=== PATIENT | male | born 1985 | race Caucasian/White ===

== ENCOUNTER 2017-11-18 01:09 | Emergency (ER) | payer BC ==
[~2017-11-18] VITALS: Ht 187.9 cm; Wt 154.2 kg
[~2017-11-18 01:09] MED LIST: AMOXICILLIN500 MG PO; IBU800 M1 PO; NKHM; TOBRADEX 0.1%-0.5 ML OPH; VICODIN 5/500 505 MG PO
[2017-11-18 01:58] LABS: HEMATOCRIT 47.6 % (42.0-52.0); HEMOGLOBIN 15.3 g/dl (14.0-18.0); MEAN CELL VOLUME 84.8 fl (80.0-94.0); MEAN CORPUSCULAR HGB 27.3 pg (27.0-31.0); MEAN CORPUSCULAR HGB CONC 32.1 g/dl (33.0-37.0); MEAN PLATELET VOLUME 9.4 fl (9.6-12.3); PLATELET COUNT AUTOMATED 256 10*3/uL (130-400); RED BLOOD COUNT 5.61 10*6/uL (4.50-5.90); RED CELL DISTRI WIDTH 14.2 % (0-14.5); WHITE BLOOD COUNT 15.4 10*3/uL (4.8-10.8)
[2017-11-18 02:10] LABS: BILIRUBIN 1+ (NEGATIVE); BLOOD NEGATIVE (NEGATIVE); CLARITY SL CLOUDY (CLEAR); COLOR YELLOW (YELLOW); GLUCOSE NEGATIVE (NEGATIVE); KETONE NEGATIVE (NEGATIVE); LEUKO ESTERASE NEGATIVE (NEGATIVE); NITRITE NEGATIVE (NEGATIVE); PH 5.5 (5.0-9.0); SPECIFIC GRAVITY 1.025 (1.005-1.030); UROBILINOGEN 0.2 E.U./dl (0.2-1.0)
[2017-11-18 02:14] LABS: ALBUMIN 3.4 gm/dl (3.1-4.5); ALKALINE PHOSPHATASE 57 U/L (45-117); BUN 18 mg/dl (7-24); CHLORIDE 104 mmol/L (98-107); CREATININE 1.03 mg/dL (0.70-1.30); LIPASE 159 U/L (73-393); POTASSIUM 3.7 mmol/L (3.5-5.1); SGOT/AST 15 IU/L (3-35); SGPT/ALT 29 U/L (12-78); SODIUM 144 mmol/L (136-145); TOTAL PROTEIN 7.6 gm/dL (6.4-8.2)
[2017-11-18 02:16] LABS: PLATELET SUFFICIENCY NORMAL (NORMAL); TOTAL CELLS COUNTED 100 #CELLS
[2017-11-18 02:17] LABS: MUCOUS TRACE
[2017-11-18 02:18] LABS: CALCIUM OXALATE CRYSTALS 1+; RBC 0-2 rbc/hpf (0-2); WBC 0-2 wbc/hpf (0-5)
[2017-11-18] MEDS ORDERED: ZOFRAN ODT4 MG SL (02:46)
[2017-11-18] MEDS ORDERED: LOMOTIL 2.5-0.1 EACH PO (02:48)
== END 2017-11-18 03:45 | disposition home or self-care (01) ==
LOC: ED 01:09
PROVIDERS: Emergency Medicine Emergency Medical Services
DX: K52.9 Noninfective gastroenteritis and colitis, unspecified (principal); F17.200 Nicotine dependence, unspecified, uncomplicated; Z88.2 Allergy status to sulfonamides; Z91.040 Latex allergy status

== ENCOUNTER 2018-05-14 00:28 | Emergency (ER) | payer BC ==
[~2018-05-14] VITALS: Ht 187.9 cm; Wt 145.1 kg
[~2018-05-14 00:28] MED LIST changes: +LOMOTIL 2.5-0.1 EACH PO; +ZOFRAN ODT4 MG SL
[2018-05-14 01:05] LABS: BASO % 0.3 % (0.0-1.0); EOS # 0.4 10*3/uL (0.0-0.4); EOS % 2.9 % (1.0-4.0); HEMATOCRIT 48.8 % (42.0-52.0); HEMOGLOBIN 15.4 g/dl (14.0-18.0); LYMPH # 1.3 10*3/uL (1.3-4.4); LYMPH % 10.4 % (27.0-41.0); MEAN CELL VOLUME 84.3 fl (80.0-94.0); MEAN CORPUSCULAR HGB 26.6 pg (27.0-31.0); MEAN CORPUSCULAR HGB CONC 31.6 g/dl (33.0-37.0); MEAN PLATELET VOLUME 9.8 fl (9.6-12.3); MONO # 0.9 10*3/uL (0.1-1.0); MONO % 7.2 % (3.0-9.0); NEUT # 10.1 10*3/uL (2.3-7.9); NEUT % 78.8 % (47.0-73.0); PLATELET COUNT AUTOMATED 311 10*3/uL (130-400); RED BLOOD COUNT 5.79 10*6/uL (4.50-5.90); RED CELL DISTRI WIDTH 13.3 % (0-14.5); WHITE BLOOD COUNT 12.9 10*3/uL (4.8-10.8)
[2018-05-14 01:30] LABS: ALBUMIN 3.7 gm/dl (3.1-4.5); ALKALINE PHOSPHATASE 51 U/L (45-117); BUN 20 mg/dl (7-24); CHLORIDE 110 mmol/L (98-107); CREATININE 0.95 mg/dL (0.70-1.30); LIPASE 137 U/L (73-393); POTASSIUM 3.8 mmol/L (3.5-5.1); SGOT/AST 19 IU/L (3-35); SGPT/ALT 29 U/L (12-78); SODIUM 143 mmol/L (136-145)
[2018-05-14 01:42] LABS: DIGOXIN 0.08 ng/ml (0.8-2.0)
[2018-05-14 02:12] LABS: BILIRUBIN 1+ (NEGATIVE); BLOOD NEGATIVE (NEGATIVE); CLARITY CLEAR (CLEAR); COLOR YELLOW (YELLOW); GLUCOSE NEGATIVE (NEGATIVE); KETONE NEGATIVE (NEGATIVE); LEUKO ESTERASE NEGATIVE (NEGATIVE); NITRITE NEGATIVE (NEGATIVE); SPECIFIC GRAVITY >= 1.030 (1.005-1.030)
[2018-05-14 02:28] LABS: BACTERIA TRACE
[2018-05-14] MEDS ORDERED: ZOFRAN ODT4 MG SL (03:06)
[2018-05-14] MEDS ORDERED: IMODIUM A-D2 M2 PO (03:06)
[2018-05-14] MEDS ORDERED: KENALOG 0.1%80 GM T (03:10)
== END 2018-05-14 03:38 | disposition home or self-care (01) ==
LOC: ED 00:28
PROVIDERS: Emergency Medicine Emergency Medical Services
DX: E86.0 Dehydration (principal); K52.9 Noninfective gastroenteritis and colitis, unspecified; F17.200 Nicotine dependence, unspecified, uncomplicated; Z98.890 Other specified postprocedural states; Z88.2 Allergy status to sulfonamides; Z91.040 Latex allergy status

== ENCOUNTER 2018-10-03 15:14 | Emergency (ER) | payer BC ==
[~2018-10-03] VITALS: Ht 187.9 cm; Wt 149.7 kg
[~2018-10-03 15:14] MED LIST changes: +IMODIUM A-D2 M2 PO; +KENALOG 0.1%80 GM T
[2018-10-03] MEDS ORDERED: NAPROSYN500 MG PO (15:16)
[2018-10-03] MEDS ORDERED: ZOFRAN4 MG PO (15:16)
[2018-10-03] MEDS ORDERED: VIBRAMYCIN100 MG PO (15:16)
== END 2018-10-03 15:35 | disposition home or self-care (01) ==
LOC: ED 15:14
DX: L03.221 Cellulitis of neck (principal); R03.0 Elevated blood-pressure reading, without diagnosis of hypertension; Z91.040 Latex allergy status; Z88.2 Allergy status to sulfonamides; Z79.899 Other long term (current) drug therapy

== ENCOUNTER 2018-12-10 12:51 | Emergency (ER) | payer BC ==
[~2018-12-10] VITALS: Ht 187.9 cm; Wt 145.1 kg
[~2018-12-10 12:51] MED LIST changes: +NAPROSYN500 MG PO; +VIBRAMYCIN100 MG PO; +ZOFRAN4 MG PO
[2018-12-10 13:37] LABS: BASO # 0.1 10*3/uL (0.0-0.1); BASO % 0.6 % (0.0-1.0); EOS # 0.4 10*3/uL (0.0-0.4); EOS % 3.1 % (1.0-4.0); HEMATOCRIT 48.7 % (42.0-52.0); HEMOGLOBIN 15.6 g/dl (14.0-18.0); LYMPH # 1.8 10*3/uL (1.3-4.4); MEAN CELL VOLUME 85.3 fl (80.0-94.0); MEAN CORPUSCULAR HGB 27.3 pg (27.0-31.0); MEAN PLATELET VOLUME 9.9 fl (9.6-12.3); MONO # 1.2 10*3/uL (0.1-1.0); MONO % 9.6 % (3.0-9.0); NEUT # 9.2 10*3/uL (2.3-7.9); NEUT % 72.2 % (47.0-73.0); PLATELET COUNT AUTOMATED 264 10*3/uL (130-400); RED BLOOD COUNT 5.71 10*6/uL (4.50-5.90); RED CELL DISTRI WIDTH 13.6 % (0-14.5); WHITE BLOOD COUNT 12.8 10*3/uL (4.8-10.8)
[2018-12-10 13:49] LABS: ALBUMIN 3.8 gm/dl (3.1-4.5); ALKALINE PHOSPHATASE 56 U/L (45-117); BUN 13 mg/dl (7-24); CHLORIDE 106 mmol/L (98-107); CREATININE 0.83 mg/dL (0.70-1.30); POTASSIUM 3.9 mmol/L (3.5-5.1); SGOT/AST 17 IU/L (3-35); SGPT/ALT 23 U/L (12-78); SODIUM 141 mmol/L (136-145); TOTAL PROTEIN 7.8 gm/dL (6.4-8.2)
[2018-12-10] MEDS ORDERED: CLEOCIN HCL150 MG PO (16:41)
== END 2018-12-10 17:00 | disposition home or self-care (01) ==
LOC: ED 12:51
PROVIDERS: Nurse Practitioner Family
DX: L02.11 Cutaneous abscess of neck (principal); L40.0 Psoriasis vulgaris; L81.9 Disorder of pigmentation, unspecified; R79.1 Abnormal coagulation profile; Z88.2 Allergy status to sulfonamides; Z91.040 Latex allergy status

== ENCOUNTER 2019-01-30 21:11 | Emergency (ER) | payer BC ==
[~2019-01-30] VITALS: Ht 187.9 cm; Wt 149.7 kg
[~2019-01-30 21:11] MED LIST changes: +CLEOCIN HCL150 MG PO
[2019-01-30 22:19] LABS: BILIRUBIN NEGATIVE (NEGATIVE); BLOOD NEGATIVE (NEGATIVE); CLARITY CLEAR (CLEAR); COLOR YELLOW (YELLOW); GLUCOSE NEGATIVE (NEGATIVE); KETONE NEGATIVE (NEGATIVE); LEUKO ESTERASE NEGATIVE (NEGATIVE); NITRITE NEGATIVE (NEGATIVE); PH 5.5 (5.0-9.0); SPECIFIC GRAVITY >= 1.030 (1.005-1.030); UROBILINOGEN 0.2 E.U./dl (0.2-1.0)
[2019-01-30 23:09] LABS: WBC 0-2 wbc/hpf (0-5)
[2019-01-30 23:14] LABS: BASO % 0.3 % (0.0-1.0); EOS # 0.3 10*3/uL (0.0-0.4); EOS % 2.8 % (1.0-4.0); HEMATOCRIT 50.4 % (42.0-52.0); HEMOGLOBIN 16.4 g/dl (14.0-18.0); LYMPH # 1.3 10*3/uL (1.3-4.4); MEAN CELL VOLUME 85.7 fl (80.0-94.0); MEAN CORPUSCULAR HGB 27.9 pg (27.0-31.0); MEAN CORPUSCULAR HGB CONC 32.5 g/dl (33.0-37.0); MEAN PLATELET VOLUME 10.6 fl (9.6-12.3); MONO # 0.7 10*3/uL (0.1-1.0); NEUT # 9.6 10*3/uL (2.3-7.9); NEUT % 79.6 % (47.0-73.0); PLATELET COUNT AUTOMATED 241 10*3/uL (130-400); RED BLOOD COUNT 5.88 10*6/uL (4.50-5.90); RED CELL DISTRI WIDTH 13.3 % (0-14.5); WHITE BLOOD COUNT 12.1 10*3/uL (4.8-10.8)
[2019-01-30 23:34] LABS: ALBUMIN 3.4 gm/dl (3.1-4.5); ALKALINE PHOSPHATASE 54 U/L (45-117); BUN 20 mg/dl (7-24); CHLORIDE 111 mmol/L (98-107); CREATININE 0.86 mg/dL (0.70-1.30); LIPASE 107 U/L (73-393); POTASSIUM 3.4 mmol/L (3.5-5.1); SGOT/AST 18 IU/L (3-35); SGPT/ALT 30 U/L (12-78); SODIUM 143 mmol/L (136-145); TOTAL PROTEIN 7.4 gm/dL (6.4-8.2)
[2019-01-30] MEDS ORDERED: PEPCID20 MG PO (23:55)
[2019-01-30] MEDS ORDERED: ZOFRAN4 MG PO (23:55)
== END 2019-01-31 04:47 | disposition home or self-care (01) ==
LOC: ED 21:11
PROVIDERS: Physician Assistant
DX: B34.9 Viral infection, unspecified (principal); M54.9 Dorsalgia, unspecified; F17.200 Nicotine dependence, unspecified, uncomplicated; Z88.2 Allergy status to sulfonamides; Z91.040 Latex allergy status; Z79.2 Long term (current) use of antibiotics

== ENCOUNTER → 2019-04-03 | Outpatient (CLI) | payer BC ==
[~2019-04-03] MED LIST changes: +PEPCID20 MG PO
== END | disposition home or self-care (01) ==
LOC: D 10:20
DX: E66.9 Obesity, unspecified (principal)

== ENCOUNTER 2019-11-11 19:05 | Emergency (ER) | payer OTHER ==
[~2019-11-11] VITALS: Wt 158.8 kg
[2019-11-11] MEDS ORDERED: ZITHROMAX250 MG PO (20:28)
[2019-11-11] MEDS ORDERED: PROAIR HFA8.5 GM INH (20:28)
== END 2019-11-11 20:35 | disposition home or self-care (01) ==
LOC: ED 19:05
DX: J18.9 Pneumonia, unspecified organism (principal); I10 Essential (primary) hypertension; F17.200 Nicotine dependence, unspecified, uncomplicated; Z88.2 Allergy status to sulfonamides; Z91.040 Latex allergy status

== ENCOUNTER 2020-01-19 18:47 | Emergency (ER) | payer OTHER ==
[~2020-01-19] VITALS: Ht 187.9 cm; Wt 165.1 kg
[~2020-01-19 18:47] MED LIST changes: +PROAIR HFA8.5 GM INH; +ZITHROMAX250 MG PO
[2020-01-19] MEDS ORDERED: DOXYCYCLINE100 M3 PO (19:06)
== END 2020-01-19 19:14 | disposition home or self-care (01) ==
LOC: ED 18:47
DX: L02.11 Cutaneous abscess of neck (principal); I10 Essential (primary) hypertension; Z88.2 Allergy status to sulfonamides; Z91.040 Latex allergy status; Z79.899 Other long term (current) drug therapy

== ENCOUNTER 2020-02-01 19:49 | Emergency (ER) | payer OTHER ==
[~2020-02-01] VITALS: Ht 187.9 cm; Wt 158.8 kg
[~2020-02-01 19:49] MED LIST changes: +DOXYCYCLINE100 M3 PO
[2020-02-01 20:22] LABS: BILIRUBIN NEGATIVE (NEGATIVE); CLARITY CLEAR (CLEAR); COLOR YELLOW (YELLOW); GLUCOSE 3+ (NEGATIVE); KETONE NEGATIVE (NEGATIVE)
[2020-02-01 20:25] LABS: BLOOD NEGATIVE (NEGATIVE); LEUKO ESTERASE NEGATIVE (NEGATIVE); NITRITE NEGATIVE (NEGATIVE); PH 6.5 (5.0-9.0); UROBILINOGEN 0.2 E.U./dl (0.2-1.0)
[2020-02-01 20:54] LABS: BASO # 0.1 10*3/uL (0.0-0.1); BASO % 1.1 % (0.0-1.0); EOS # 0.4 10*3/uL (0.0-0.4); EOS % 3.8 % (1.0-4.0); HEMATOCRIT 45.1 % (42.0-52.0); HEMOGLOBIN 14.8 g/dl (14.0-18.0); LYMPH # 2.1 10*3/uL (1.3-4.4); LYMPH % 20.7 % (27.0-41.0); MEAN CELL VOLUME 83.7 fl (80.0-94.0); MEAN CORPUSCULAR HGB 27.5 pg (27.0-31.0); MEAN CORPUSCULAR HGB CONC 32.8 g/dl (33.0-37.0); MONO # 0.7 10*3/uL (0.1-1.0); MONO % 7.1 % (3.0-9.0); NEUT # 6.9 10*3/uL (2.3-7.9); PLATELET COUNT AUTOMATED 283 10*3/uL (130-400); RED BLOOD COUNT 5.39 10*6/uL (4.50-5.90); RED CELL DISTRI WIDTH 12.3 % (0-14.5); WHITE BLOOD COUNT 10.3 10*3/uL (4.8-10.8)
[2020-02-01 21:10] LABS: ALBUMIN 3.3 gm/dl (3.1-4.5); ALKALINE PHOSPHATASE 73 U/L (45-117); BUN 23 mg/dl (7-24); CHLORIDE 96 mmol/L (98-107); CREATININE 1.33 mg/dL (0.70-1.30); POTASSIUM 3.8 mmol/L (3.5-5.1); SGOT/AST 57 IU/L (3-35); SGPT/ALT 81 U/L (12-78); SODIUM 131 mmol/L (136-145); TOTAL PROTEIN 7.3 gm/dL (6.4-8.2)
== END 2020-02-02 00:05 | disposition home or self-care (01) ==
LOC: ED 19:49
PROVIDERS: Emergency Medicine
DX: E11.65 Type 2 diabetes mellitus with hyperglycemia (principal); I10 Essential (primary) hypertension; Z88.2 Allergy status to sulfonamides; Z91.040 Latex allergy status; Z79.899 Other long term (current) drug therapy

== ENCOUNTER 2020-04-01 21:37 | Emergency (ER) | payer OTHER ==
[~2020-04-01] VITALS: Ht 187.9 cm; Wt 154.2 kg
== END 2020-04-02 00:31 | disposition home or self-care (01) ==
LOC: ED 21:37
DX: S20.219A Contusion of unspecified front wall of thorax, initial encounter (principal); I10 Essential (primary) hypertension; E11.9 Type 2 diabetes mellitus without complications; Z88.2 Allergy status to sulfonamides; Z91.040 Latex allergy status; Z79.899 Other long term (current) drug therapy; W19.XXXA Unspecified fall, initial encounter; Y93.89 Activity, other specified; Y92.89 Other specified places as the place of occurrence of the external cause; Y99.8 Other external cause status

== ENCOUNTER 2020-10-22 19:45 | Emergency (ER) | payer OTHER ==
[~2020-10-22] VITALS: Wt 154.2 kg
[2020-10-22 20:04] LABS: BASO # 0.1 10*3/uL (0.0-0.1); BASO % 0.9 % (0.0-1.0); EOS # 0.4 10*3/uL (0.0-0.4); EOS % 2.9 % (1.0-4.0); HEMATOCRIT 39.9 % (42.0-52.0); LYMPH # 1.7 10*3/uL (1.3-4.4); LYMPH % 13.3 % (27.0-41.0); MEAN CELL VOLUME 83.6 fl (80.0-94.0); MEAN CORPUSCULAR HGB 26.2 pg (27.0-31.0); MEAN CORPUSCULAR HGB CONC 31.3 g/dl (33.0-37.0); MEAN PLATELET VOLUME 9.8 fl (9.6-12.3); MONO # 0.8 10*3/uL (0.1-1.0); MONO % 6.4 % (3.0-9.0); NEUT # 9.8 10*3/uL (2.3-7.9); NEUT % 75.8 % (47.0-73.0); PLATELET COUNT AUTOMATED 401 10*3/uL (130-400); RED BLOOD COUNT 4.77 10*6/uL (4.50-5.90); RED CELL DISTRI WIDTH 13.4 % (0-14.5); WHITE BLOOD COUNT 12.9 10*3/uL (4.8-10.8)
[2020-10-22 20:22] LABS: ACT PARTIAL THROMBO TIME 27.5 SECONDS (20.0-32.1)
[2020-10-22 20:23] LABS: ALBUMIN 3.2 gm/dl (3.1-4.5); ALKALINE PHOSPHATASE 63 U/L (45-117); BUN 14 mg/dl (7-24); CHLORIDE 105 mmol/L (98-107); CREATININE 0.96 mg/dL (0.70-1.30); POTASSIUM 3.4 mmol/L (3.5-5.1); SGOT/AST 23 IU/L (3-35); SGPT/ALT 22 U/L (12-78); SODIUM 140 mmol/L (136-145); TOTAL PROTEIN 7.5 gm/dL (6.4-8.2)
[2020-10-22 20:25] LABS: TROPONIN I < 0.015 ng/ml (<0.045)
[2020-10-23] MEDS ORDERED: ZITHROMAX250 MG PO (02:04)
== END 2020-10-23 02:57 | disposition home or self-care (01) ==
LOC: ED 19:45
PROVIDERS: Emergency Medicine
DX: J18.9 Pneumonia, unspecified organism (principal); I10 Essential (primary) hypertension; Z20.828 Contact with and (suspected) exposure to other viral communicable diseases; Z88.2 Allergy status to sulfonamides; Z91.040 Latex allergy status; Z79.2 Long term (current) use of antibiotics; Z79.899 Other long term (current) drug therapy; Z96.651 Presence of right artificial knee joint

== ENCOUNTER 2023-03-07 08:01 | Emergency (ER) | payer OTHER ==
[~2023-03-07] VITALS: Ht 187.9 cm; Wt 148.8 kg
[2023-03-07] MEDS ORDERED: FUROSEMIDE40 MG PO (08:32)
[2023-03-07] MEDS ORDERED: SILDENAFIL CITR50 MG PO (08:33)
[2023-03-07] MEDS ORDERED: VALSARTAN-HCTZ1 EAC3 PO (08:33)
[2023-03-07 08:34] LABS: BASO # 0.1 10*3/uL (0.0-0.1); BASO % 1.1 % (0.0-1.0); EOS # 0.1 10*3/uL (0.0-0.4); EOS % 1.2 % (1.0-4.0); HEMATOCRIT 46.9 % (42.0-52.0); MEAN CELL VOLUME 85.6 fl (80.0-94.0); MEAN CORPUSCULAR HGB 27.7 pg (27.0-31.0); MEAN CORPUSCULAR HGB CONC 32.4 g/dl (33.0-37.0); MEAN PLATELET VOLUME 9.4 fl (9.6-12.3); MONO # 0.9 10*3/uL (0.1-1.0); NEUT # 5.4 10*3/uL (2.3-7.9); NEUT % 72.4 % (47.0-73.0); PLATELET COUNT AUTOMATED 191 10*3/uL (130-400); RED BLOOD COUNT 5.48 10*6/uL (4.50-5.90); WHITE BLOOD COUNT 7.5 10*3/uL (4.8-10.8)
[2023-03-07 08:46] LABS: ACT PARTIAL THROMBO TIME 33.9 SECONDS (20.0-32.1); INTERNATIONAL NORM RATIO 1.1 (2.0-3.5)
[2023-03-07 08:51] LABS: ALKALINE PHOSPHATASE 46 U/L (46-116); BUN 7 mg/dl (9-23); CHLORIDE 100 mmol/L (98-107); LIPASE 33 U/L (12-53); POTASSIUM 3.6 mmol/L (3.4-5.1); SGPT/ALT 19 U/L (10-49); TOTAL PROTEIN 7.1 gm/dL (6.0-8.0)
[2023-03-07] MEDS ORDERED: ZITHROMAX250 MG PO (09:02)
== END 2023-03-07 09:03 | disposition home or self-care (01) ==
LOC: ED 08:01
PROVIDERS: Emergency Medicine
DX: J20.9 Acute bronchitis, unspecified (principal); Z91.040 Latex allergy status; Z88.2 Allergy status to sulfonamides; Z79.899 Other long term (current) drug therapy

== ENCOUNTER 2024-09-16 08:26 | Emergency (ER) | payer OTHER ==
[~2024-09-16] VITALS: Ht 185.4 cm; Wt 149.7 kg
[~2024-09-16 08:26] MED LIST changes: +FUROSEMIDE40 MG PO; +SILDENAFIL CITR50 MG PO; +VALSARTAN-HCTZ1 EAC3 PO
[2024-09-16] MEDS ORDERED: IBUPROFEN 600 MG TAB PO ONE (08:55)
== END 2024-09-16 11:14 | disposition home or self-care (01) ==
LOC: ED 08:26
DX: S49.91XA Unspecified injury of right shoulder and upper arm, initial encounter (principal); R07.81 Pleurodynia; F17.200 Nicotine dependence, unspecified, uncomplicated; Z88.2 Allergy status to sulfonamides; Z91.040 Latex allergy status; Z79.899 Other long term (current) drug therapy; W11.XXXA Fall on and from ladder, initial encounter; Y93.89 Activity, other specified; Y92.89 Other specified places as the place of occurrence of the external cause; Y99.0 Civilian activity done for income or pay

== ENCOUNTER 2025-10-17 18:27 | Emergency (ER) | payer SELFPAY ==
[~2025-10-17] VITALS: Ht 187.9 cm; Wt 149.7 kg
[2025-10-17] MEDS ORDERED: SODIUM CHLORIDE 0.9% 1,000 ML IV ONE ×2 (19:15→21:10)
[2025-10-17 19:34] LABS: BASO # 0.1 10*3/uL (0.0-0.1); BASO % 0.7 % (0.0-1.0); EOS # 0.5 10*3/uL (0.0-0.4); EOS % 4.6 % (1.0-4.0); MEAN CELL VOLUME 83.4 fl (80.0-94.0); MEAN CORPUSCULAR HGB 28.0 pg (27.0-31.0); MEAN PLATELET VOLUME 9.7 fl (9.6-12.3); MONO # 0.7 10*3/uL (0.1-1.0); MONO % 6.6 % (3.0-9.0); NEUT # 6.7 10*3/uL (2.3-7.9); NEUT % 68.6 % (47.0-73.0); NUCLEATED RED BLOOD CELL 0.0 % (0.0-0.0); NUCLEATED RED BLOOD CELL 0.0 10*3/uL (0.0-0.0); PLATELET COUNT AUTOMATED 245 10*3/uL (130-400); RED CELL DISTRI WIDTH 12.4 % (0-14.5)
[2025-10-17 19:58] LABS: BILIRUBIN Negative (Negative); BLOOD Negative (Negative); CLARITY Clear (Clear); COLOR Yellow (Yellow); KETONE Trace (Negative); LEUKO ESTERASE Negative (Negative); NITRITE Negative (Negative); PH 6.0 (4.5-8.0); SPECIFIC GRAVITY >= 1.030 (1.001-1.030); UROBILINOGEN 0.2 E.U./dl (0.0-1.0)
[2025-10-17 20:01] LABS: BUN 10 mg/dl (9-23); SGPT/ALT 33 U/L (5-49)
[2025-10-17 20:20] LABS: BACTERIA TRACE; RBC 0-2 rbc/hpf (0-2); WBC 0-2 wbc/hpf (0-5)
[2025-10-17] MEDS ORDERED: INSULIN REGULAR, HUMAN 1 UNIT/0.01 ML IV ONE (21:10)
[2025-10-17] MEDS ORDERED: CEPHALEXIN500 M1 PO (21:47)
[2025-10-17] MEDS ORDERED: CEPHALEXIN 500 MG CAP PO ONE (21:55)
== END 2025-10-17 22:59 | disposition home or self-care (01) ==
LOC: ED 18:27
PROVIDERS: Nurse Practitioner
DX: E11.65 Type 2 diabetes mellitus with hyperglycemia (principal); L73.9 Follicular disorder, unspecified; H66.93 Otitis media, unspecified, bilateral; I10 Essential (primary) hypertension; E66.01 Morbid (severe) obesity due to excess calories; Z98.890 Other specified postprocedural states; Z88.2 Allergy status to sulfonamides; Z91.040 Latex allergy status; Z20.822 Contact with and (suspected) exposure to COVID-19

== ENCOUNTER 2025-10-31 00:40 | Emergency (ER) | payer SELFPAY ==
[~2025-10-31] VITALS: Ht 182.8 cm; Wt 113.4 kg
[~2025-10-31 00:40] MED LIST changes: +CEPHALEXIN500 M1 PO
[2025-10-31] MEDS ORDERED: MELOXICAM15 MG PO (02:45)
== END 2025-10-31 02:47 | disposition home or self-care (01) ==
LOC: ED 00:40
DX: S80.12XA Contusion of left lower leg, initial encounter (principal); I10 Essential (primary) hypertension; E11.9 Type 2 diabetes mellitus without complications; Z96.653 Presence of artificial knee joint, bilateral; Z98.890 Other specified postprocedural states; Z88.2 Allergy status to sulfonamides; Z91.040 Latex allergy status; X58.XXXA Exposure to other specified factors, initial encounter; Y93.89 Activity, other specified; Y92.89 Other specified places as the place of occurrence of the external cause; Y99.8 Other external cause status